=== PATIENT | male | born 1970 | race African-American/Black ===

== ENCOUNTER 2020-02-08 09:57 | Outpatient (CLI) | payer OTHER, SELFPAY ==
--- NOTE | ~2020-02-08 | CT_ITS ---
EXAMINATION: CT soft tissue neck chest w EXAM DATE: 02/08/2020 10:34 INDICATION: Head and neck cancer. TECHNIQUE: Spiral CT of the neck and chest was performed following intravenous injection of 75 mL Omn ipaque 350. Axial, coronal and sagittal images of the neck were reviewed. Axial, coronal and sagitt al images of the chest were reviewed. Coronal maximum intensity pixel images of chest reviewed. The dose-length product (DLP) for this examination was 1200.46 mGy-cm. The exposure was tailored accord ing to patient size (auto mA exposure control), and iterative reconstruction (ASIR) was used as addit ional dose reduction technique. Comparison is made to prior examination from 08/03/2019. FINDINGS: NECK: The thyroid gland is unremarkable. Left submandibular gland has likely been surgically resec [place]. There are surgical clips in the region with persistent ill-defined fat planes deep to the left s ternocleidomastoid, surrounding and within the carotid sheath, likely radiation related change, and s table in appearance. There is no cervical lymphadenopathy. There are no masses identified. The a irway is unremarkable. Parapharyngeal and pre-glottic fat planes are preserved. The opacified vas culature is patent. The orbits are unremarkable. There is moderate bilateral ethmoid, nasal cavit y mucoperiosteal thickening, mild in the maxillary sinuses and left frontal sinus. No sinus air-fluid levels. Mastoid air cells are well aerated. There is mild to moderate cervical spondylosis. CHEST: The lungs are clear. Trace pericardial effusion. No pleural effusions. No central pulmonary emboli. Tracheobronchial tree is patent. There is no mediastinal, hilar or axillary lymphadenopath y. There is no pneumothorax. Cardiomegaly, with left ventricular dilation. No evidence of kruse ry arterial calcification. Upper abdomen is unremarkable. There is thoracic spondylosis without os teoblastic or osteolytic lesions identified. IMPRESSION: 1. Stable left neck surgical and radiation related changes. 2. Cardiomegaly, left ventricular dilation. 3. [id number] mucoperiosteal thickening Reviewed, dictated and finalized at location A. IMPRESSION: 1. Stable left neck surgical and radiation related changes. 2. Cardiomegaly, left ventricular dilation. 3. [id number] mucoperiosteal thickening
== END 2020-02-08 09:58 | disposition home or self-care (01) ==
LOC: ANHIMG 09:58
PROVIDERS: PCP Internal Medicine Hematology & Oncology; Visit Provider Internal Medicine Hematology & Oncology
DX: C76.0 Malignant neoplasm of head, face and neck (principal); I51.7 Cardiomegaly
CPT/HCPCS: 70491; 71260; Q9967

== ENCOUNTER 2020-02-15 15:06 | Outpatient (CLI) | payer OTHER, SELFPAY ==
[2020-02-15 15:24] LABS: Basophils Percent Auto 0.3 % (0.2-1.2); Eosinophils Absolute Auto 0.2 K/mm3 (0-0.3); Eosinophils Percent Auto 4.2 % (0-4.4); Hematocrit 36.3 % (42.0-52.0); Hemoglobin 11.2 g/dL (14.0-18.0); Immature Granulocyte Absolute 0.02 K/mm3 (0.00-0.031); Immature Granulocyte Percent A 0.6 % (0-0.5); Lymphocytes Absolute Auto 0.81 K/mm3 (0.9-3.2); Lymphocytes Percent Auto 22.7 % (18.3-44.2); Mean Corpuscular HGB Conc 30.9 g/dl (32-36); Mean Platelet Volume 9.7 fl (7.4-10.4); Monocytes Absolute Auto 0.4 K/mm3 (0.1-0.6); Monocytes Percent Auto 11.5 % (2.6-8.5); Neutrophils Absolute Auto 2.2 K/mm3 (1.3-6.7); Neutrophils Percent Auto 60.7 % (45.5-73.1); Platelet Count Result 171 k/mm3 (150-375); Red Blood Count 4.48 M/mm3 (4.6-6.20); Red Cell Distribution Width 15.4 % (11.5-14.5); White Blood Count 3.6 K/mm3 (4.5-10.0)
[2020-02-15 15:31] LABS: Blood Urea Nitrogen 19 mg/dL (8-26); Carbon Dioxide 25 mmol/L (22-30); Chloride 105 mmol/L (98-109); Estimated Glomerular Filt Rate > 60; Glucose 93 mg/dL (70-105); Potassium 3.9 mmol/L (3.5-4.9); Sodium 141 mmol/L (138-146)
[2020-02-15 16:49] LABS: Alanine Aminotransferase 28 U/L (4-50); Albumin Level 4.4 g/dL (3.5-5.1); Alkaline Phosphatase 42 U/L (38-126); Aspartate Amino Transferase 33 U/L (17-59); Bilirubin,Total 0.5 mg/dL (0.2-1.3); Blood Urea Nitrogen 20 mg/dL (9-20); Calcium 9.1 mg/dL (8.4-10.2); Carbon Dioxide 29 mmol/L (22-30); Chloride 105 mmol/L (98-107); Estimated Glomerular Filt Rate > 60; Glucose 99 mg/dL (75-110); Potassium 4.2 mmol/L (3.4-5.0); Sodium 139 mmol/L (137-145)
== END 2020-02-15 15:07 | disposition home or self-care (01) ==
PROVIDERS: Visit Provider Internal Medicine Hematology & Oncology
DX: C76.0 Malignant neoplasm of head, face and neck (principal)
CPT/HCPCS: 36415; 80048; 80053; 85025